=== PATIENT | female | born 2000 | race Caucasian/White ===

== ENCOUNTER 2024-04-17 10:25 | Outpatient (AMB) | payer BC, MEDICAID, SELFPAY ==
--- NOTE | 2024-04-17 10:22 | AMB.OBINITIA ---
Vital Signs 04/17/24 10:36 Height 1.57 m Height Method Stated Weight 69.003 kg Weight Measurement Method Standing Scale BMI 27.8 BP 94/51 L Blood Pressure Source Automatic Cuff Blood Pressure Location Left Upper Arm Position Sitting Respiration 16 Pulse 96 Pulse Source Monitor Temp 97.2 F Temp Source Oral Pulse Oximetry (%) 98 Oxygen Delivery Method Room Air Allergies/Home Meds Allergies & Medications Allergies No Known Allergies Allergy (Verified 04/17/24 10:39) Medication Reconciliation No Known Home Medications 04/17/24 [History Confirmed 04/17/24] Intake Visit Data Collection New Patient or Established: New Patient (never been to [facility]) Reason for Visit:: New OB visit Consent obtained for Telemed Visit: No Seen by Clinical Staff ONLY (RN/MA): No Textile Designs Sales Representative Required: No Do You Feel Safe at Home: Yes Authorities Contacted: N/A PCP or OBGYN visit in last 3 months: Yes Hx Now: Yes Are you currently on any form of Control: No Last menstrual period: 01/16/24 Pain Present Currently: No Pain Scale Used: Paulino-Zamora/Numerical Pain scale:: 0 Smoking Status Smoking Status: Never smoker Questionnaires Covid-19 Vaccine Questionnaire Has patient been vacinated for Covid-19 Have you been vacinated for Covid-19: No PHQ-9 PHQ-2 Over the last 2 weeks, how often have you been bothered by any of the following problems? 1. Little interest or pleasure in doing things: not at all 2. 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 Tobacco History Smoking Status: Never smoker Alcohol History Alcohol Intake: Never Domestic Abuse History Do You Feel Safe at Home: Yes Past Medical History Past Medical History Have you ever been diagnosed with any of the following: Neurological Problems Meningitis: No Seizures: No Migraine: No Cardiology Problems Cardiac Arrhythmia: No Heart Murmur: No Hypercholesterolemia: No Deep Vein Thrombosis: No Hypertension: No Respiratory Problems Asthma: No Pulmonary Embolism: No Sleep Apnea: No Stomache/Intestinal Problems Gall Bladder Disease: No Irritable Bowel: No Gastroesophageal Reflux Disease: No Obesity: No Genital/Urinary Problems Kidney Stones: No Reproductive Problems Breast Cancer: No Endometriosis: No Fibroids: No Genital Herpes: No Gonorrhea: No Pelvic Inflammatory Disease: No Polycystic Ovarian Syndrome: No Previous Pregnancies: Yes (Previous vaginal delivery x 2) Musculoskeletal Problems Arthritis: No Rheumatoid Arthritis: No Head,Eye,Nose,Throat Problems Glaucoma: No Endocrine Problems Diabetes Mellitus Type 2: No Hyperthyroidism: No Hypothyroidism: No Blood Problems Anemia: No Clotting Problems: No Psychologic Problems Depression: No Anxiety: No Attention Deficit Disorder: No Depression: No Other Problems Hospitalization: Yes (For vaginal delivery x 2) Autoimmune Disease: No Blood Transfusions: No Surgical History Appendectomy: No Bariatric Surgery: No OB Initial Visit Menstrual History Menstrual reliability: definite Flow: normal Menstrual regularity: regular Monthly: Yes Age at menarche: 11 On control pills at conception: No Date of positive home test: 02/26/24 OB History : 3 Para: 2 # of Living Children: 2 Delivery History 1st : Child's name: lanette date: 10/23/20 sex: male Gestational age at delivery (weeks): 40 Delivery type: vaginal weight (lbs): 3628.739 g Delivery complications: Shoulder dystocia History of depression before or after : No 2nd : Child's name: Berto date: 11/27/22 sex: female Gestational age at delivery (weeks): 39 Delivery type: vaginal weight (lbs): 3628.739 g History of depression before or after : No Additional comments: Induction of labor at 39 weeks due to history of shoulder dystocia Infection History & Risk Evaluation History of STDs: none HIV risk evaluation: low risk Hepatitis B risk evaluation: low risk Patient or partner has history of Genital Herpes: No Varicella/chicken pox status: immunized Genetic Screening & History Genetic Screening/Teratology Counseling - Includes patient, baby's father, or anyone in either family with: 1. Patient's age 35 years or older as of estimated date of delivery: No 2. Thalassemia (Kuwaiti, Danish, Mediterranean, or Background); MCV less than 80: No 3. Neural Tube Defect (Meningomyelocele, Spina Bifida, or Anencephaly): No 4. Congenital Heart Defect: No 5. Down Syndrome: No 6. Neri-Sachs (Ashkenazi Scientologist, Cajun, Samoan Slovenian): No 7. Adore Disease (Ashkenazi Scientologist): No 8. Familial Dysautonomia (Ashkenazi Scientologist): No 9. Sickle Cell Disease or Trait (): No 10. Hemophilia or other blood disorders: No 11. Muscular Dystrophy: No 12. Cystic Fibrosis: No 13. Key's Chorea: No 14. Mental Retardation/Autism: No 15. Other inherited genetic or chromosomal disorder: No 16. Maternal Metabolic Disorder (EG,TYPE 1 Diabetes, PKU): No 17. Patient or baby's father had a child with defects not listed above: No 18. Recurrent loss or a stillbirth: No 19. Medications (including supplements, vitamins, herbs or otc drugs)/illicit/recreational drugs/alcohol since last menstrual period: No 20. Any other: No Comments/Counseling: Patient had NIPT drawn results are not back yet Infection History 1. Live with someone with TB or exposed to TB: No 2. Rash or viral illness since last menstrual period: No 3. Hepatitis B,C: No Other (see comments) Source: [employer] OB Flowsheet OB Flowsheet Initial Weight: Not Recorded Date <del>?</del> EGA Weight Edema CTX Effacement BP Fundal ht Pres Dilation Effacement Station Visit Note Alb Glu FHR Mov 04/17/24 <del>?</del> 12w 0d 69.003 kg 94/51 140 Exam General Limitations: no limitations General Appearance: alert, in no apparent distress, comfortable, cooperative, healthy appearing and well groomed Neck Neck exam: Present normal inspection, full ROM and trachea midline Chest Chest inspection: Present normal inspection and symmetric chest wall rise Resp Respiratory exam: Present normal lung sounds bilaterally Card Cardiovascular exam: Present regular rate, normal rhythm and normal heart sounds Abdominal Abdominal exam: Present soft and normal bowel sounds External exam: Present normal external exam Bimanual exam: Present normal bimanual exam and uterine enlargement (12-14 week size) Extremities Extremities exam: Present normal inspection and full ROM Psych Psychiatric exam: Present normal affect and normal mood Skin Skin exam: Present warm, dry, intact and normal color Assessment & Plan Diagnosis / Problem List (1) History of shoulder dystocia in prior : Status: Acute (2) : Status: Acute Additional Plan Follow Up: 4 Weeks (Patient to call for her labs and NIPT and release any records to us.) Office Procedures OB Clinic LOC & Office Proc's Nursing/Assessment Patient Status: Initial/New Patient OB Clinic Nursing Assessment: BP Monitoring, Medication Reconciliation, Update PMH in EMR and Vital Signs OB Clinic Coordination of Care: Consent,records obtained, informed consent, Education Simp Pt/Fam, Lab and Imaging orders and Staff clarify orders Special Needs: Heart tones New Patient Charge New Patient Point Assignment: 1119 New Patient Point Charge: MAT REPAIRER Level 4 ([id number]) OB Ultrasound OB Ultrasound Indication(s):: Size and dates, viability Ultrasound technique:: transvaginal Embryo/ Assessment 1: [place]-rump length (cm): 5.25 (Corresponding to 12 weeks 0 days)
[2024-04-17 10:36] VITALS: BP 94/51; PULSE 96; RESP 16; TEMP 36.2; O2SAT 98; BMI 27.8
== END 2024-04-17 11:06 | disposition home or self-care (01) ==
LOC: HODSOBC 10:25
PROVIDERS: Supervising Provider Obstetrics & Gynecology; Visit Provider Obstetrics & Gynecology
DX: Z34.81 Encounter for supervision of other normal pregnancy, first trimester (principal); Z3A.12 12 weeks gestation of pregnancy; Z87.59 Personal history of other complications of pregnancy, childbirth and the puerperium
CPT/HCPCS: 99204; G0463

== ENCOUNTER 2024-06-05 11:03 | Outpatient (AMB) | payer BC, MEDICAID, SELFPAY ==
--- NOTE | 2024-06-05 11:06 | OBCLNT_ITS ---
Vital Signs 06/05/24 11:18 Height 1.57 m Height Method Stated Weight 72.575 kg Weight Measurement Method Standing Scale BMI 29.4 BP 128/75 Blood Pressure Source Automatic Cuff Blood Pressure Location Left Upper Arm Position Sitting Respiration 14 Pulse 80 Pulse Source Monitor Temp 97.7 F Temp Source Oral Pulse Oximetry (%) 98 Oxygen Delivery Method Room Air Allergies/Home Meds Allergies & Medications Allergies No Known Allergies Allergy (Verified 06/05/24 11:18) Medication Reconciliation No Known Home Medications 04/17/24 [History Confirmed 06/05/24] Intake Visit Data Collection New Patient or Established: Established Patient (seen at [facility] within 3 years) Reason for Visit:: CARE Seen by Clinical Staff ONLY (RN/MA): No 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 1. Little interest or pleasure in doing things: not at all 2. Feeling down, depressed, or hopeless: not at all Total score: 0 PHQ-9 3. Trouble falling or staying asleep, or sleeping too much: Not at all 4. Feeling tired or having little energy: Not at all 5. Poor appetite or overeating: Not at all 6. Feeling bad about yourself - or that you are a failure or have let yourself or your family down: Not at all 7. Trouble concentrating on things, such as reading the newspaper or watching television: Not at all 8. Moving or speaking so slowly that other people could have noticed? - Or the opposite - being so fidgety or restless that you have been moving around a lot more than usual: not at all 9. Thoughts that you would be better off or of hurting yourself in some way: Not at all Total score: 0 Source: Developed by Drs. Larry Allen, Valarie Brownlee, Cesar Rose and colleagues, with an educational galo from [employer]. 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 Tobacco History Smoking Status: Never smoker Alcohol History Alcohol Intake: Never Domestic Abuse History Do You Feel Safe at Home: Yes Past Medical History Past Medical History Have you ever been diagnosed with any of the following: Neurological Problems Cerebrovascular Accident (CVA): No Transient Ischemic Attacks (TIA): No Dementia: No Alzheimer's Disease: No Parkinson's Disease: No Brain Tumor: No Meningitis: No Seizures: No Guillain-[place] Syndrome: No Migraine: No Cardiology Problems Myocardial Infarction: No Cardiac Arrhythmia: No Heart Murmur: No Hypercholesterolemia: No Deep Vein Thrombosis: No Hypertension: No Respiratory Problems Chronic Obstructive Pulmonary Disease (COPD): No Asthma: No Pulmonary Embolism: No Sleep Apnea: No Smoking: No Smoking Cessation Counseling: No Smoking Exposure: No Tobacco Use: No Stomache/Intestinal Problems Liver Cancer: No Hepatitis: No Cirrhosis: No Pancreatic Cancer: No Pancreatitis: No Gall Bladder Disease: No Irritable Bowel: No Gastroesophageal Reflux Disease: No Obesity: No Genital/Urinary Problems Chronic Kidney Disease: No Renal Disease: No Kidney Stones: No Polycystic Kidney Disease: No Neurogenic Bladder: No Inguinal Hernia: No Dialysis: No Reproductive Problems Breast Cancer: No Endometriosis: No Fibroids: No Genital Herpes: No Gonorrhea: No Pelvic Inflammatory Disease: No Polycystic Ovarian Syndrome: No Previous Pregnancies: Yes (Previous vaginal delivery x 2) Musculoskeletal Problems Muscular Dystrophy: No Arthritis: No Rheumatoid Arthritis: No Head,Eye,Nose,Throat Problems Glaucoma: No Endocrine Problems Diabetes Mellitus Type 2: No Hyperthyroidism: No Hypothyroidism: No Blood Problems Anemia: No Clotting Problems: No Psychologic Problems Depression: No Anxiety: No Attention Deficit Disorder: No Depression: No Other Problems Hospitalization: Yes (For vaginal delivery x 2) Autoimmune Disease: No Down Syndrome: No Autism: No Developmental Delay: No Cosmetic Surgery: No Shingles: No Falls: No Blood Transfusions: No Surgical History Appendectomy: No Bariatric Surgery: No Visit OB Visit Log OB Flowsheet Initial Weight: 68 kg Date -?-?-?-?-?-?-?-?-?-?-?-?- EGA Weight Edema CTX Effacement BP Fundal ht Pres Dilation Effacement Station Visit Note Alb Glu FHR Mov 04/17/24 -?-?-?-?-?-?-?-?-?-?-?-?- 12w 0d 69.003 kg (+1002.739 g) 94/51 14 0 06/05/24 -?-?-?-?-?-?-?-?-?-?-?-?- 19w 0d 72.575 kg (+4574.779 g) 128/75 22 Went to ER for a shock. all tests WNL. Need SS US. 140 active BEA Calculator Estimated Delivery Date Method Current WG Current Estimate 10/30/24 Ultrasound #1 19w 0d Other Estimates 10/22/24 LMP (Certain) 20w 1d Expected Delivery Route/Plan EDC 10/30/24 Specific Issue/Plans HX SHOULDER DYSTOCIA WITH FIRST BABY. FOR IOL 38-39 WEEKS. NOT 10/23 IT IS HER OTHER CHILD'S B DAY Notes Visit Date: 06/05/24 Last Updated by: Malinda Enrique (OB Clinic)MD Need all PNC labs from [facility] in [place] Office Procedures OB Clinic LOC & Office Proc's Nursing/Assessment Patient Status: Established Patient OB Clinic Nursing Assessment: Medication Reconciliation, Update PMH in EMR and Vital Signs OB Clinic Coordination of Care: Complex Care and Chronic Disease 1-5, Consent,records obtained, informed consent, Education Simp Pt/Fam and Staff clarify orders Special Needs: Heart tones Miscellaneous Interventions: Blood/Urine Collection Established Patient Charge Established Patient Point Assignment: 145 Established Patient Point Charge: EP Level 4 (120-155)
[2024-06-05 11:18] VITALS: BP 128/75; PULSE 80; RESP 14; TEMP 36.5; O2SAT 98; BMI 29.4
== END 2024-06-05 11:28 | disposition home or self-care (01) ==
LOC: HODSOBC 11:03
PROVIDERS: Supervising Provider Obstetrics & Gynecology; Visit Provider Obstetrics & Gynecology
DX: O09.292 Supervision of pregnancy with other poor reproductive or obstetric history, second trimester (principal); Z3A.19 19 weeks gestation of pregnancy; Z87.59 Personal history of other complications of pregnancy, childbirth and the puerperium
CPT/HCPCS: 99214; G0463

== ENCOUNTER 2024-07-03 13:55 | Outpatient (AMB) | payer BC, MEDICAID, SELFPAY ==
[2024-07-03 14:08] VITALS: BP 124/74; PULSE 93; RESP 18; TEMP 36.2; O2SAT 97; BMI 30.3
--- NOTE | 2024-07-03 14:08 | OBCLNT_ITS ---
Vital Signs 07/03/24 14:08 Height 1.57 m Height Method Stated Weight 74.843 kg Weight Measurement Method Standing Scale BMI 30.3 BP 124/74 Blood Pressure Source Automatic Cuff Blood Pressure Location Left Upper Arm Position Sitting Respiration 18 Pulse 93 Pulse Source Monitor Temp 97.2 F Temp Source Oral Pulse Oximetry (%) 97 Oxygen Delivery Method Room Air Allergies/Home Meds Allergies & Medications Allergies No Known Allergies Allergy (Verified 07/03/24 14:09) Medication Reconciliation No Known Home Medications 04/17/24 [History Confirmed 07/03/24] Intake Visit Data Collection New Patient or Established: Established Patient (seen at [facility] within 3 years) Reason for Visit:: OBC Seen by Clinical Staff ONLY (RN/MA): No 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 1. Little interest or pleasure in doing things: not at all 2. Feeling down, depressed, or hopeless: not at all Total score: 0 PHQ-9 3. Trouble falling or staying asleep, or sleeping too much: Not at all 4. Feeling tired or having little energy: Not at all 5. Poor appetite or overeating: Not at all 6. Feeling bad about yourself - or that you are a failure or have let yourself or your family down: Not at all 7. Trouble concentrating on things, such as reading the newspaper or watching television: Not at all 8. Moving or speaking so slowly that other people could have noticed? - Or the opposite - being so fidgety or restless that you have been moving around a lot more than usual: not at all 9. Thoughts that you would be better off or of hurting yourself in some way: Not at all Total score: 0 If you checked off any problems, how difficult have these problems made it for you to do your work, take care of things at home, or get along with other people?: not difficult at all Source: Developed by Drs. Larry Allen, Valarie Brownlee, Cesar Rose and colleagues, with an educational galo from [employer]. 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: Past Medical History Past Medical History: No Hx Hypothyroidism, No Hx Hyperthyroidism, No Hx Breast Cancer, No Hx Hypertension, No Hx Anemia, No Hx Renal Disease, No Hx Deep Vein Thrombosis, No Hx Diabetes Mellitus Type 2 and No Hx Polycystic Ovarian Syndrome Care OB Visit Log OB Flowsheet Initial Weight: 68 kg Date -?-?-?-?-?-?-?-?-?-?-?-?- EGA Weight Edema CTX Effacement BP Fundal ht Pres Dilation Effacement Station Visit Note Alb Glu FHR Mov 04/17/24 -?-?-?-?-?-?-?-?-?-?-?-?- 12w 0d 69.003 kg (+1002.739 g) 94/51 14 0 06/05/24 -?-?-?-?-?-?-?-?-?-?-?-?- 19w 0d 72.575 kg (+4574.779 g) 128/75 22 Went to ER for a shock. all tests WNL. Need SS US. 140 active 07/03/24 -?-?-?-?-?-?-?-?-?-?-?-?- 23w 0d 74.843 kg (+6842.741 g) 124/74 24 No bleed ing contractions or loss of fluid. Patient is tired but she has 2 little ones at home 148 active BEA Calculator Estimated Delivery Date Method Current WG Current Estimate 10/30/24 Ultrasound #1 23w 0d Other Estimates 10/22/24 LMP (Certain) 24w 1d Comments: labs on chart from 04/10/2024 [facility] delta: A +/antibody screen negative/rubella nonimmune/ RPR nonreactive /HIV negative/ hepatitis B surface antigen negative/ hepatitis C negative /TB test negative and GC negative/ Chlamydia negative/ Trichomonas negative /urine culture negative /hemoglobin 12.6. Ultrasound from 04/09/2024 reviewed intrauterine measuring 11- 2/7 weeks with cardiac activity and an EDC of 10/28/2024. CF negative Expected Delivery Route/Plan EDC 10/30/24 Specific Issue/Plans HX SHOULDER DYSTOCIA WITH FIRST BABY. FOR IOL 38-39 WEEKS. NOT 10/23 IT IS HER OTHER CHILD'S B DAY Notes Visit Date: 07/03/24 Last Updated by: Malinda Enrique (OB Clinic)MD Patient states she had NIPT. I do not have any report. We did get a hold of her ultrasound from [facility] 06/23/2024 revealing a normal structural survey breech presentation EDC 11/03/2024 Visit Date: 06/05/24 Last Updated by: Malinda Enrique (OB Clinic)MD Need all PNC labs from [facility] in [place] Office Procedures OB Clinic LOC & Office Proc's Nursing/Assessment Patient Status: Established Patient OB Clinic Nursing Assessment: Medication Reconciliation, Update PMH in EMR and Vital Signs OB Clinic Coordination of Care: Consent,records obtained, informed consent, Education Simp Pt/Fam and Staff clarify orders Special Needs: Heart tones Established Patient Charge Established Patient Point Assignment: 90 Established Patient Point Charge: EP Level 3 (80-115) Assessment & Plan Diagnosis / Problem List (1) : Status: Acute Qualifiers: Weeks of gestation: 23 weeks Qualified Code(s): Z3A.23 - 23 weeks gestation of (2) History of shoulder dystocia in prior : Status: Acute Assessment and Plan: For induction of labor between 38 and 39 weeks. Ultrasound at 36 weeks for EFW
== END 2024-07-03 14:48 | disposition home or self-care (01) ==
LOC: HODSOBC 13:55
PROVIDERS: Supervising Provider Obstetrics & Gynecology; Visit Provider Obstetrics & Gynecology
DX: O09.292 Supervision of pregnancy with other poor reproductive or obstetric history, second trimester (principal); Z3A.23 23 weeks gestation of pregnancy; Z87.59 Personal history of other complications of pregnancy, childbirth and the puerperium
CPT/HCPCS: 99213; G0463

== ENCOUNTER 2024-08-03 10:37 | Outpatient (AMB) | payer BC, SELFPAY ==
[2024-08-03 11:14] VITALS: BP 121/75; PULSE 86; RESP 18; TEMP 36.2; O2SAT 98; BMI 31.6
--- NOTE | 2024-08-03 11:14 | AMB.OBVISIT ---
Vital Signs 08/03/24 11:14 Height 1.57 m Height Method Stated Weight 78.131 kg Weight Measurement Method Standing Scale BMI 31.6 BP 121/75 Blood Pressure Source Automatic Cuff Blood Pressure Location Left Upper Arm Position Sitting Respiration 18 Pulse 86 Pulse Source Monitor Temp 97.2 F Temp Source Oral Pulse Oximetry (%) 98 Oxygen Delivery Method Room Air Allergies/Home Meds Allergies & Medications Allergies No Known Allergies Allergy (Verified 08/03/24 11:15) Medication Reconciliation No Known Home Medications 04/17/24 [History Confirmed 08/03/24] Intake Visit Data Collection New Patient or Established: Established Patient (seen at [facility] within 3 years) Reason for Visit:: OBC Seen by Clinical Staff ONLY (RN/MA): No Bottomer Operator Required: No Do You Feel Safe at Home: Yes Authorities Contacted: N/A PCP or OBGYN visit in last 3 months: Yes Date of Last PCP or OBGYN visit: 07/03/24 Hx Now: Yes Pain Present Currently: No Pain Scale Used: Paulino-Zamora/Numerical Pain scale:: 0 Smoking Status Smoking Status: Never smoker Questionnaires Covid-19 Vaccine Questionnaire Has patient been vacinated for Covid-19 Have you been vacinated for Covid-19: Yes PHQ-9 PHQ-2 Over the last 2 weeks, how often have you been bothered by any of the following problems? 1. Little interest or pleasure in doing things: not at all 2. Feeling down, depressed, or hopeless: not at all Total score: 0 PHQ-9 3. Trouble falling or staying asleep, or sleeping too much: Not at all 4. Feeling tired or having little energy: Not at all 5. Poor appetite or overeating: Not at all 6. Feeling bad about yourself - or that you are a failure or have let yourself or your family down: Not at all 7. Trouble concentrating on things, such as reading the newspaper or watching television: Not at all 8. Moving or speaking so slowly that other people could have noticed? - Or the opposite - being so fidgety or restless that you have been moving around a lot more than usual: not at all 9. Thoughts that you would be better off or of hurting yourself in some way: Not at all Total score: 0 If you checked off any problems, how difficult have these problems made it for you to do your work, take care of things at home, or get along with other people?: not difficult at all Source: Developed by Drs. Larry Allen, Valarie Brownele, Cesar Rose and colleagues, with an educational galo from [employer]. 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 Care OB Visit Log OB Flowsheet Initial Weight: 68 kg Date <del>?</del> EGA Weight BP Alb Glu CTX Pres Fundal ht FHR Mov Dilation Station Effacement Hx Notes Visit Note 04/17/24 <del>?</del> 12w 0d 69.003 kg (+1002.739 g) 94/51 140 06/05/24 <del>?</del> 19w 0d 72.575 kg (+4574.779 g) 128/75 22 140 active Went to ER for a shock. all tests WNL. Need SS US. 07/03/24 <del>?</del> 23w 0d 74.843 kg (+6842.741 g) 124/74 24 148 active No bleeding contractions or loss of fluid. Patient is tired but she has 2 little ones at home 08/03/24 <del>?</del> 27w 3d 78.131 kg (+10.131 kg) 121/75 30 154 active +FM, No LOF or VB BEA Calculator Estimated Delivery Date Method Current WG Current Estimate 10/30/24 Ultrasound #1 27w 3d Other Estimates 10/22/24 LMP (Certain) 28w 4d Comments: labs on the chart: A+/ antibody negative/ rubella nonimmune/ RPR nonreactive /hepatitis B surface antigen negative/ hepatitis C negative/ GC negative /Chlamydia negative/ trichomonas negative /RPR negative/ HIV negative /NIPT 46XX Structural survey at 21 weeks on 06/23/2024 normal. Expected Delivery Route/Plan EDC 10/28/24 IOL 38-39 weeks h/o Shoulder dyystocia with first baby. Not second baby Specific Issue/Plans HX SHOULDER DYSTOCIA WITH FIRST BABY. FOR IOL 38-39 WEEKS. NOT 10/23 IT IS HER OTHER CHILD'S B DAY Notes Visit Date: 08/03/24 Last Updated by: Malinda Enrique (OB Clinic)MD All labs up-to-date and on the chart. Structural survey on the chart. NIPT on the chart. Induction of labor at 38 to 39 weeks for history of shoulder dystocia. Schedule ultrasound at 35 to 36 weeks for size. Glucose challenge test ordered. Visit Date: 07/03/24 Last Updated by: Malinda Enrique (OB Clinic)MD Patient states she had NIPT. I do not have any report. We did get a hold of her ultrasound from [facility] 06/23/2024 revealing a normal structural survey breech presentation EDC 11/03/2024 Visit Date: 06/05/24 Last Updated by: Malinda Enrique (OB Clinic)MD Need all PNC labs from [facility] in [place] Office Procedures OB Clinic LOC & Office Proc's Nursing/Assessment Patient Status: Established Patient OB Clinic Nursing Assessment: Update PMH in EMR and Vital Signs OB Clinic Coordination of Care: Education Complex Pt/Fam and 4+ Authorizations needed Special Needs: Heart tones Established Patient Charge Established Patient Point Assignment: 100 Established Patient Point Charge: EP Level 3 (80-115)
== END 2024-08-03 12:10 | disposition home or self-care (01) ==
LOC: HODSOBC 10:37
PROVIDERS: PCP Obstetrics & Gynecology; Referring Provider Obstetrics & Gynecology; Supervising Provider Obstetrics & Gynecology; Visit Provider Obstetrics & Gynecology
DX: O09.292 Supervision of pregnancy with other poor reproductive or obstetric history, second trimester (principal); Z3A.27 27 weeks gestation of pregnancy; Z87.59 Personal history of other complications of pregnancy, childbirth and the puerperium
CPT/HCPCS: 99213; G0463

== ENCOUNTER 2024-09-25 13:19 | Outpatient (AMB) | payer MEDICAID, SELFPAY ==
[2024-09-25 13:26] VITALS: BP 125/83; PULSE 98; RESP 17; TEMP 36.4; BMI 32.9
--- NOTE | 2024-09-25 13:26 | AMB.OBVISIT ---
Vital Signs 09/25/24 13:26 Height 1.57 m Height Method Measured Weight 81.193 kg Weight Measurement Method Standing Scale BMI 32.9 BP 125/83 Blood Pressure Source Automatic Cuff Blood Pressure Location Right Upper Arm Position Sitting Respiration 17 Pulse 98 Pulse Source Monitor Temp 97.5 F Temp Source Temporal Artery Scan Allergies/Home Meds Allergies & Medications Allergies No Known Allergies Allergy (Verified 09/25/24 13:27) Medication Reconciliation No Known Home Medications 04/17/24 [History Confirmed 09/25/24] Intake Visit Data Collection New Patient or Established: Established Patient (seen at [facility] within 3 years) Reason for Visit:: OBC\ LAB RESULTS Consent obtained for Telemed Visit: No Seen by Clinical Staff ONLY (RN/MA): No 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 1. Little interest or pleasure in doing things: not at all PHQ-9 3. Trouble falling or staying asleep, or sleeping too much: Not at all 4. Feeling tired or having little energy: Not at all 5. Poor appetite or overeating: Not at all 6. Feeling bad about yourself - or that you are a failure or have let yourself or your family down: Not at all 7. Trouble concentrating on things, such as reading the newspaper or watching television: Not at all 8. Moving or speaking so slowly that other people could have noticed? - Or the opposite - being so fidgety or restless that you have been moving around a lot more than usual: not at all 9. Thoughts that you would be better off or of hurting yourself in some way: Not at all If you checked off any problems, how difficult have these problems made it for you to do your work, take care of things at home, or get along with other people?: not difficult at all Source: Developed by Drs. Larry Allen, Valarie Brownlee, Cesar Rose and colleagues, with an educational galo from [employer]. 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 History of Present Illness HPI Narrative The patient is a 24-year-old -0-0-2 presents for care Care OB Visit Log OB Flowsheet Initial Weight: 68 kg Date <del>?</del> EGA Weight BP Alb Glu CTX Pres Fundal ht FHR Mov Dilation Station Effacement Hx Notes Visit Note 04/17/24 <del>?</del> 12w 0d 69.003 kg (+1002.739 g) 94/51 140 06/05/24 <del>?</del> 19w 0d 72.575 kg (+4574.779 g) 128/75 22 140 active Went to ER for a shock. all tests WNL. Need SS US. 07/03/24 <del>?</del> 23w 0d 74.843 kg (+6842.741 g) 124/74 24 148 active No bleeding contractions or loss of fluid. Patient is tired but she has 2 little ones at home 08/03/24 <del>?</del> 27w 3d 78.131 kg (+10.131 kg) 121/75 30 154 active +FM, No LOF or VB 09/25/24 <del>?</del> 35w 0d 81.193 kg (+13.193 kg) 125/83 35 147 active Good movement no contractions or vaginal bleeding Patient had elevated glucose challenge test and I discussed her 3-hour results today. I just got a hold of this report today it was done a month ago August 25 [facility]. Patient states she was having trouble getting the results sent to me. It is 87\203\139\144. Patient technically failed her 1 hour and her 3-hour. As she is already 35 weeks she will start following a gestational diabetic diet at this point. Patient had elevated glucose challenge test and I discussed her 3-hour results today. I just got a hold of this report today it was done a month ago August 25 at [facility] Patient states she was having trouble getting the results sent to me. It is 87\203\139\144. Patient technically failed her 1 hour and her 3-hour. As she is already 35 weeks she will start following a gestational diabetic diet at this point. BEA Calculator Estimated Delivery Date Method Current WG Current Estimate 10/30/24 Ultrasound #1 35w 0d Other Estimates 10/22/24 LMP (Certain) 36w 1d Expected Delivery Route/Plan EDC 10/28/24 IOL 38-39 weeks h/o Shoulder dyystocia with first baby. Not second baby labs from [facility]: No blood type available/ rubella immune/ RPR nonreactive/ hepatitis B surface antigen negative /HIV negative/ hepatitis C negative/ GC negative/ Chlamydia negative/urine culture negative /hemoglobin 13/ NIPT 46XX TB test negative /cystic fibrosis test negative Ultrasound at [facility] on chart 04/09/24 :11 weeks 2 days IUP corresponding to EDC 10/28/2024. 1 hour glucose elevated 160/3-hour glucose done late revealing elevated 1 hour at 203 and elevated 3-hour at 144. Plan for gestational diabetic diet. Specific Issue/Plans HX SHOULDER DYSTOCIA WITH FIRST BABY. FOR IOL 38-39 WEEKS. NOT 10/23 IT IS HER OTHER CHILD'S B DAY Notes Visit Date: 09/25/24 Last Updated by: Malinda Enrique (OB Clinic)MD Authorized for ultrasound now for size greater than dates. History of shoulder dystocia and her first delivery but not her second delivery. Induce at 38 weeks. Visit Date: 08/03/24 Last Updated by: Malinda Enrique (OB Clinic)MD All labs up-to-date and on the chart. Structural survey on the chart. NIPT on the chart. Induction of labor at 38 to 39 weeks for history of shoulder dystocia. Schedule ultrasound at 35 to 36 weeks for size. Glucose challenge test ordered. Visit Date: 07/03/24 Last Updated by: Malinda Enrique (OB Clinic)MD Patient states she had NIPT. I do not have any report. We did get a hold of her ultrasound from [facility] 06/23/2024 revealing a normal structural survey breech presentation EDC 11/03/2024 Visit Date: 06/05/24 Last Updated by: Malinda Enrique (OB Clinic)MD Need all PNC labs from [facility] in [place] Office Procedures OB Clinic LOC & Office Proc's Nursing/Assessment Patient Status: Established Patient OB Clinic Nursing Assessment: Medication Reconciliation, Update PMH in EMR and Vital Signs OB Clinic Coordination of Care: Complex Care and Chronic Disease 1-5, Consent,records obtained, informed consent, Education Simp Pt/Fam, 4+ Authorizations needed and Results/Orders obtained Special Needs: Heart tones Established Patient Charge Established Patient Point Assignment: 135 Established Patient Point Charge: EP Level 4 (120-155) Assessment & Plan Diagnosis / Problem List (1) History of shoulder dystocia in prior : Status: Acute Plan: Induction of labor 2 weeks early (2) : Status: Acute Qualifiers: Weeks of gestation: 36 weeks Qualified Code(s): Z3A.36 - 36 weeks gestation of Plan: For size ultrasound today,size greater than dates
== END 2024-09-25 14:00 | disposition home or self-care (01) ==
LOC: HODSOBC 13:19
PROVIDERS: Supervising Provider Obstetrics & Gynecology; Visit Provider Obstetrics & Gynecology
DX: O09.293 Supervision of pregnancy with other poor reproductive or obstetric history, third trimester (principal); Z3A.35 35 weeks gestation of pregnancy; Z87.59 Personal history of other complications of pregnancy, childbirth and the puerperium
CPT/HCPCS: 99214; G0463

== ENCOUNTER → 2024-10-02 | Outpatient (CLI) | payer MEDICAID, SELFPAY ==
--- NOTE | 2024-10-02 | XR_ITS ---
Examination: Complete OB ultrasound greater than 14 weeks Date and time of exam: October 02, 2024 0736 hours INDICATIONS: History shoulder dystocia in prior Findings: Viable intrauterine single fetus with single amniotic sac presentation cephalic Cardiac motion 132 BPM Placenta fundal maternal right grade 2 Umbilical cord insertion 3 vessel seen Amniotic fluid index 9.6 cm spine maternal left Ovaries obscured by bowel gas. Composite estimated gestational age based on BPD, head circumference, abdominal circumference, femur length is 35 weeks 2 days Estimated weight 2597.4 g. Survey of intracranial anatomy, spinal anatomy, abdominal anatomy, four-chamber heart performed with no abnormalities identified. Impression: Viable intrauterine gestation cephalic presentation Estimated gestational age 35 weeks 2 days Estimated weight 2597.4 g.
== END | disposition home or self-care (01) ==
PROVIDERS: Referring Provider Obstetrics & Gynecology; Visit Provider Obstetrics & Gynecology
DX: Z87.59 Personal history of other complications of pregnancy, childbirth and the puerperium (principal); Z3A.36 36 weeks gestation of pregnancy
CPT/HCPCS: 76805

== ENCOUNTER 2024-10-05 12:58 | Outpatient (AMB) | payer MEDICAID, SELFPAY ==
[2024-10-05 13:16] VITALS: BP 121/80; PULSE 92; RESP 18; TEMP 36.7; O2SAT 98; BMI 32.5
--- NOTE | 2024-10-05 13:16 | OBCLNT_ITS ---
Vital Signs 10/05/24 13:16 Height 1.57 m Height Method Stated Weight 80.399 kg Weight Measurement Method Standing Scale BMI 32.5 BP 121/80 Blood Pressure Source Automatic Cuff Blood Pressure Location Left Upper Arm Position Sitting Respiration 18 Pulse 92 Pulse Source Monitor Temp 98.1 F Temp Source Oral Pulse Oximetry (%) 98 Oxygen Delivery Method Room Air Allergies/Home Meds Allergies & Medications Allergies No Known Allergies Allergy (Verified 10/05/24 13:22) Medication Reconciliation No Known Home Medications 04/17/24 [History Confirmed 10/05/24] Intake Visit Data Collection New Patient or Established: Established Patient (seen at [facility] within 3 years) Reason for Visit:: CARE Seen by Clinical Staff ONLY (RN/MA): No 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 1. Little interest or pleasure in doing things: not at all 2. Feeling down, depressed, or hopeless: not at all Total score: 0 PHQ-9 3. Trouble falling or staying asleep, or sleeping too much: Not at all 4. Feeling tired or having little energy: Not at all 5. Poor appetite or overeating: Not at all 6. Feeling bad about yourself - or that you are a failure or have let yourself or your family down: Not at all 7. Trouble concentrating on things, such as reading the newspaper or watching television: Not at all 8. Moving or speaking so slowly that other people could have noticed? - Or the opposite - being so fidgety or restless that you have been moving around a lot more than usual: not at all 9. Thoughts that you would be better off or of hurting yourself in some way: Not at all Total score: 0 Source: Developed by Valarie GambinoW. Kem, Cesar Rose and colleagues, with an educational galo from [employer]. 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 History Past Medical History: No Hx Hypothyroidism, No Hx Hyperthyroidism, No Hx Breast Cancer, No Hx Hypertension, No Hx Anemia, No Hx Renal Disease, No Hx Deep Vein Thrombosis, No Hx Diabetes Mellitus Type 2 and No Hx Polycystic Ovarian Syndrome Care OB Visit Log OB Flowsheet Initial Weight: 68 kg Date -?-?-?-?-?-?-?-?-?-?-?-?- EGA Weight BP Alb Glu CTX Pres Fundal ht FHR Mov Dilation Station Effacement Hx Notes Visit Note 04/17/24 -?-?-?-?-?-?-?-?-?-?-?-?- 12w 0d 69.003 kg (+1002.739 g) 94/51 140 06/05/24 -?-?-?-?-?-?-?-?-?-?-?-?- 19w 0d 72.575 kg (+4574.779 g) 128/75 22 140 active Went to ER for a shock. all tests WNL. Need SS US. 07/03/24 -?-?-?-?-?-?-?-?-?-?-?-?- 23w 0d 74.843 kg (+6842.741 g) 124/74 24 148 active No bleeding contractions or loss of fluid. Patient is tired but she has 2 little ones at home 08/03/24 -?-?-?-?-?-?-?-?-?-?-?-?- 27w 3d 78.131 kg (+10.131 kg) 121/75 30 154 active +FM, No LOF or VB 09/25/24 -?-?-?-?-?-?-?-?-?-?-?-?- 35w 0d 81.193 kg (+13.193 kg) 125/83 35 147 active Good movement no contractions or vaginal bleeding Patient had kriss vated glucose challenge test and I discussed her 3-hour results today. I just got a hold of this report today it was done a month ago August 25 [facility]. Patient states she was having trouble getting the results sent to me. It is 87\203\139\144. Patient technically failed her 1 hour and her 3-hour. As she is already 35 weeks she will start following a gestational diabetic diet at this point. Patient had elevated glucose challenge test and I discussed her 3-hour results today. I just got a hold of this report today it was done a month ago August 25 at [facility] Patient states she was having trouble getting the results sent to me. It is 87\203\139\144. Patient technically failed her 1 hour and her 3-hour. As she is already 35 weeks she will start following a gestational diabetic diet at this point. 10/05/24 -?-?-?--?-?-?-?-?-?-?-?-?- 36w 3d 80.399 kg (+12.399 kg) 121/80 occasional cephalic 36 134 active Good movement no contractions no loss of fluid Has growth ultrasound this Saturday BEA Calculator Estimated Delivery Date Method Current WG Current Estimate 10/30/24 Ultrasound #1 36w 3d Other Estimates 10/22/24 LMP (Certain) 37w 4d Expected Delivery Route/Plan LMP 01/16/24 edc by lmp 10/24/24 EDC 10/28/24 by 11 2/7 week us IOL 38-39 weeks h/o Shoulder dyystocia with first baby. Not second baby labs from [facility]: No blood type available/ rubella immune/ RPR nonreactive/ hepatitis B surface antigen negative /HIV negative/ hepatitis C negative/ GC negative/ Chlamydia negative/urine culture negative /hemoglobin 13/ NIPT 46XX TB test negative /cystic fibrosis test negative Ultrasound at [facility] on chart 04/09/24 :11 weeks 2 days IUP corresponding to EDC 10/28/2024. 1 hour glucose elevated 160/3-hour glucose done late revealing elevated 1 hour at 203 and elevated 3-hour at 144. Plan for gestational diabetic diet. Specific Issue/Plans HX SHOULDER DYSTOCIA WITH FIRST BABY. FOR IOL 38-39 WEEKS. NOT 10/23 IT IS HER OTHER CHILD'S B DAY Notes Visit Date: 09/25/24 Last Updated by: Malinda Enrique (OB Clinic)MD Authorized for ultrasound now for size greater than dates. History of shoulder dystocia and her first delivery but not her second delivery. Induce at 38 weeks. Visit Date: 08/03/24 Last Updated by: Malinda Enrique (OB Clinic)MD All labs up-to-date and on the chart. Structural survey on the chart. NIPT on the chart. Induction of labor at 38 to 39 weeks for history of shoulder dystocia. Schedule ultrasound at 35 to 36 weeks for size. Glucose challenge test ordered. Visit Date: 07/03/24 Last Updated by: Malinda Enrique (OB Clinic)MD Patient states she had NIPT. I do not have any report. We did get a hold of her ultrasound from [facility] 06/23/2024 revealing a normal structural survey breech presentation EDC 11/03/2024 Visit Date: 06/05/24 Last Updated by: Malinda Enrique (OB Clinic)MD Need all PNC labs from [facility] [place] Office Procedures OB Clinic LOC & Office Proc's Nursing/Assessment Patient Status: Established Patient OB Clinic Nursing Assessment: Medication Reconciliation, Update PMH in EMR and Vital Signs OB Clinic Coordination of Care: Complex Care and Chronic Disease 1-5, Consent,records obtained, informed consent, Education Simp Pt/Fam, 1 Ins Authorization, Lab and Imaging orders, Results/Orders obtained and Staff clarify orders Special Needs: Heart tones Miscellaneous Interventions: Culture Specimen Collection Established Patient Charge Established Patient Point Assignment: 165 Established Patient Point Charge: EP Level 5 (160-above) Assessment & Plan Diagnosis / Problem List (1) : Status: Acute Qualifiers: Weeks of gestation: 36 weeks Qualified Code(s): Z3A.36 - 36 weeks gestation of (2) History of shoulder dystocia in prior : Status: Acute Plan: Induce at 38 to 39-week Additional Plan Follow Up: 1 Week
== END 2024-10-05 13:45 | disposition home or self-care (01) ==
LOC: HODSOBC 12:58
PROVIDERS: Supervising Provider Obstetrics & Gynecology; Visit Provider Obstetrics & Gynecology
DX: O09.293 Supervision of pregnancy with other poor reproductive or obstetric history, third trimester (principal); Z3A.36 36 weeks gestation of pregnancy; Z87.59 Personal history of other complications of pregnancy, childbirth and the puerperium
CPT/HCPCS: 99215; G0463

== ENCOUNTER 2024-10-14 10:49 | Outpatient (AMB) | payer MEDICAID, SELFPAY ==
[2024-10-14 11:36] VITALS: BP 135/76; PULSE 102; RESP 20; TEMP 36.6; O2SAT 99; BMI 32.8
--- NOTE | 2024-10-14 11:36 | OBCLNT_ITS ---
Vital Signs 10/14/24 11:36 Height 1.57 m Height Method Stated Weight 80.966 kg Weight Measurement Method Standing Scale BMI 32.8 BP 135/76 H Blood Pressure Source Automatic Cuff Blood Pressure Location Left Upper Arm Position Sitting Respiration 20 Pulse 102 H Pulse Source Monitor Temp 97.9 F Temp Source Oral Pulse Oximetry (%) 99 Oxygen Delivery Method Room Air Allergies/Home Meds Allergies & Medications Allergies No Known Allergies Allergy (Verified 10/14/24 11:37) Medication Reconciliation No Known Home Medications 04/17/24 [History Confirmed 10/14/24] Intake Visit Data Collection New Patient or Established: Established Patient (seen at [facility] within 3 years) Reason for Visit:: CARE Seen by Clinical Staff ONLY (RN/MA): No 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 1. Little interest or pleasure in doing things: not at all 2. Feeling down, depressed, or hopeless: not at all Total score: 0 PHQ-9 3. Trouble falling or staying asleep, or sleeping too much: Not at all 4. Feeling tired or having little energy: Not at all 5. Poor appetite or overeating: Not at all 6. Feeling bad about yourself - or that you are a failure or have let yourself or your family down: Not at all 7. Trouble concentrating on things, such as reading the newspaper or watching television: Not at all 8. Moving or speaking so slowly that other people could have noticed? - Or the opposite - being so fidgety or restless that you have been moving around a lot more than usual: not at all 9. Thoughts that you would be better off or of hurting yourself in some way: Not at all Total score: 0 Source: Developed by Blair Gambinoet B.W. Kem, Cesar Rose and colleagues, with an educational galo from [employer]. 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: Past Medical History Past Medical History: No Hx Hypothyroidism, No Hx Hyperthyroidism, No Hx Breast Cancer, No Hx Hypertension, No Hx Anemia, No Hx Renal Disease, No Hx Deep Vein Thrombosis, No Hx Diabetes Mellitus Type 2 and No Hx Polycystic Ovarian Syndrome Care OB Visit Log OB Flowsheet Initial Weight: 68 kg Date -?-?-?-?-?-?-?-?-?-?-?-?- EGA Weight BP Alb Glu CTX Pres Fundal ht FHR Mov Dilation Station Effacement Hx Notes Visit Note 04/17/24 -?-?-?-?-?-?-?-?-?-?-?-?- 12w 0d 69.003 kg (+1002.739 g) 94/51 140 06/05/24 -?-?-?-?-?-?-?-?-?-?-?-?- 19w 0d 72.575 kg (+4574.779 g) 128/75 22 140 active Went to ER for a shock. all tests WNL. Need SS US. 07/03/24 -?-?-?-?-?-?-?-?-?-?-?-?- 23w 0d 74.843 kg (+6842.741 g) 124/74 24 148 active No bleeding contractions or loss of fluid. Patient is tired but she has 2 little ones at home 08/03/24 -?-?-?-?-?-?-?-?-?-?-?-?- 27w 3d 78.131 kg (+10.131 kg) 121/75 30 154 active +FM, No LOF or VB 09/25/24 -?-?-?-?-?-?-?-?-?-?-?-?- 35w 0d 81.193 kg (+13.193 kg) 125/83 35 147 active Good movement no contractions or vaginal bleeding Patient had kriss vated glucose challenge test and I discussed her 3-hour results today. I just got a hold of this report today it was done a month ago August 25 [facility]. Patient states she was having trouble getting the results sent to me. It is 87\203\139\144. Patient technically failed her 1 hour and her 3-hour. As she is already 35 weeks she will start following a gestational diabetic diet at this point. Patient had elevated glucose challenge test and I discussed her 3-hour results today. I just got a hold of this report today it was done a month ago August 25 at [facility] Patient states she was having trouble getting the results sent to me. It is 87\203\139\144. Patient technically failed her 1 hour and her 3-hour. As she is already 35 weeks she will start following a gestational diabetic diet at this point. 10/05/24 -?-?-?-?-?-?-?-?-?-?-?-?- 36w 3d 80.399 kg (+12.399 kg) 121/80 occasional cephalic 36 134 active Good movement no contractions no loss of fluid Has growth ultrasound this Saturday10/14/24 -?-?-?-?-?-?-?-?-?-?-?-?- 37w 5d 80.966 kg (+12.966 kg) 135/76 occasional cephalic 37 127 active +FM No UCs No VB No LOF IOL in 1 week BEA Calculator Estimated Delivery Date Method Current WG Current Estimate 10/30/24 Ultrasound #1 37w 5d Other Estimates 10/22/24 LMP (Certain) 38w 6d Expected Delivery Route/Plan LMP 01/16/24 edc by lmp 10/24/24 EDC 10/28/24 by 11 2/7 week us IOL 38-39 weeks h/o Shoulder dyystocia with first baby. Not second baby labs from [facility]: No blood type available/ rubella immune/ RPR nonreactive/ hepatitis B surface antigen negative /HIV negative/ hepatitis C negative/ GC negative/ Chlamydia negative/urine culture negative /hemoglobin 13/ NIPT 46XX TB test negative /cystic fibrosis test negative Ultrasound at [facility] on chart 2/20/25 :11 weeks 2 days IUP corresponding to EDC 10/28/2024. 1 hour glucose elevated 160/3-hour glucose done late revealing elevated 1 hour at 203 and elevated 3-hour at 144. Plan for gestational diabetic diet. Specific Issue/Plans HX SHOULDER DYSTOCIA WITH FIRST BABY. FOR IOL 38-39 WEEKS. NOT 10/23 IT IS HER OTHER CHILD'S B DAY Notes Visit Date: 10/14/24 Last Updated by: Malinda Enrique (OB Clinic)MD 10/02/24 2597 gm ( 5 lbs 10 oz. Around 6 lbs 10 oz today. GBBS negative Visit Date: 09/25/24 Last Updated by: Malinda Enrique (OB Clinic)MD Authorized for ultrasound now for size greater than dates. History of shoulder dystocia and her first delivery but not her second delivery. Induce at 38 weeks. Visit Date: 08/03/24 Last Updated by: Malinda Enrique (OB Clinic)MD All labs up-to-date and on the chart. Structural survey on the chart. NIPT on the chart. Induction of labor at 38 to 39 weeks for history of shoulder dystocia. Schedule ultrasound at 35 to 36 weeks for size. Glucose challenge test ordered. Visit Date: 07/03/24 Last Updated by: Malinda Enrique (OB Clinic)MD Patient states she had NIPT. I do not have any report. We did get a hold of her ultrasound from [facility] 06/23/2024 revealing a normal structural survey breech presentation EDC 11/03/2024 Visit Date: 06/05/24 Last Updated by: Malinda Enrique (OB Clinic)MD Need all PNC labs from [facility] in [place] Office Procedures OB Clinic LOC & Office Proc's Nursing/Assessment Patient Status: Established Patient OB Clinic Nursing Assessment: Medication Reconciliation, Update PMH in EMR and Vital Signs OB Clinic Coordination of Care: Complex Care and Chronic Disease 1-5, Consent,records obtained, informed consent, Education Simp Pt/Fam, Lab and Tammi ging orders, Results/Orders obtained and Staff clarify orders Special Needs: Heart tones Established Patient Charge Established Patient Point Assignment: 135 Established Patient Point Charge: EP Level 4 (120-155)
== END 2024-10-14 12:11 | disposition home or self-care (01) ==
LOC: HODSOBC 10:49
PROVIDERS: Supervising Provider Obstetrics & Gynecology; Visit Provider Obstetrics & Gynecology
DX: O09.293 Supervision of pregnancy with other poor reproductive or obstetric history, third trimester (principal); Z3A.37 37 weeks gestation of pregnancy; Z87.59 Personal history of other complications of pregnancy, childbirth and the puerperium
CPT/HCPCS: 99214; G0463

== ENCOUNTER 2024-10-14 17:32 | Observation (INO) | payer MEDICAID, SELFPAY ==
[2024-10-14] VITALS (15 sets, daily range): BP systolic 115–124; BP diastolic 71–82; PULSE 90–124; RESP 17–98; TEMP 36.8; O2SAT 96–99; BMI 32.5
[2024-10-14 18:10] LABS: ROM Kit Lot # 58102387; ROM Swab Mixed By: HL; Rupture of Fetal Membranes Negative (Negative); Swb Mxed in Solvent 1 min? Yes
== END 2024-10-14 21:52 | disposition home or self-care (01) ==
PROVIDERS: Admitting Provider Obstetrics & Gynecology; PCP Obstetrics & Gynecology; Visit Provider Obstetrics & Gynecology
DX: Z34.83 Encounter for supervision of other normal pregnancy, third trimester (principal); Z3A.38 38 weeks gestation of pregnancy
CPT/HCPCS: 59025; 59899; 84112

== ENCOUNTER 2024-10-21 06:20 | Inpatient (IN) | payer MEDICAID, SELFPAY ==
[2024-10-21] VITALS (61 sets, daily range): BP systolic 124–188; BP diastolic 69–105; PULSE 76–120; RESP 16–17; TEMP 36.4–37; O2SAT 92–100; BMI 32.9
--- NOTE | 2024-10-21 07:03 | XR_ITS ---
Examination: age Limited TECHNIQUE: Limited transabdominal sonographic images pelvis Date and time: October 21, 2024 0749 hours INDICATIONS: Labor evaluation today, preinduction FINDINGS: Viable intrauterine gestation cephalic presentation. Estimated weight 2921.4 g Cardiac motion 138 BPM IMPRESSION: Estimated weight 2921 g Estimated gestational age 36 weeks 4 days
[2024-10-21 10:15] LABS: Basophils # (Auto) 0.0 Thou/mm3 (0.0-0.2); Basophils % (Auto) 0 % (0-2.5); Eosinophils # (Auto) 0.1 Thou/mm3 (0.0-0.5); Eosinophils % (Auto) 1 % (0-10); Hematocrit 39.1 % (36.0-46.0); Hemoglobin 12.9 g/dL (12.0-16.0); Immature Granulocytes Auto 0.08 Thou/mm3 (0.00-0.00); Lymphocytes # (Auto) 2.1 Thou/mm3 (1.0-4.8); Lymphocytes % (Auto) 25 % (10-50); Mean Corpuscular HGB Conc 33.0 g/dl (31.0-37.0); Mean Corpuscular Hemoglobin 29.3 pg (25.0-35.0); Mean Corpuscular Volume 89 fL (80-100); Monocytes # (Auto) 0.8 Thou/mm3 (0.0-0.8); Monocytes % (Auto) 10 % (0-12); Neutrophils # (Auto) 5.3 Thou/mm3 (1.8-7.7); Neutrophils % (Auto) 63 % (37-80); Nucleated Red Blood Cell # 0.00 Thou/mm3 (0.00-0.00); Nucleated Red Blood Cell % 0 /100 WBC (0); Platelet Count 233 Thou/mm3 (140-440); RDW Standard Deviation 47.5 fL (36.4-46.3); Red Blood Count 4.40 Miln/mm3 (4.00-5.20); White Blood Count 8.4 Thou/mm3 (3.6-11.0)
[2024-10-21 10:46] LABS: Syphilis Nonreactive (Nonreactive)
--- NOTE | 2024-10-21 12:35 | ESHP_ITS ---
Documentation for date of: 10/21/24 OB Labor/Induct. HPI History of Present Illness Chief complaint: scheduled IOL : 3 Para: 2 Term pregnancies: 2 pregnancies: 0 Living children: 2 History of sections: No History of : No Date of last menstrual period: 01/16/24 BEA: 10/24/24 Gestational Age (weeks): 39 Gestational Age (days): 4 Gestational age based on last menstrual period: 39 History of present illness: Patient presents for scheduled induction of labor. Indication: A1GDM, hx of shoulder dystocia in 1st delivery. No regular/painful ctx. No LOF. No vaginal bleeding. Normal movement. History of Present Dating criteria: LMP confirmed by 1st trimester US Adequate Care: Yes Ultrasounds: other (On admission: 2924g, 8.4%ile ) Narrative: : 2020 male 40wk, shoulder dystocia, 3628g G2: 2022 female 39wk iol 3628g G3: current, complicated by A1GDM and hx of prior shoulder dystocia. Current BMI 32.9. Labs Maternal Blood Type: A Pos Labs: Negative: Group Beta Strep Narrative: Rubella immune/ RPR nonreactive/ hepatitis B surface antigen negative /HIV negative/ hepatitis C negative/ GC negative/ Chlamydia negative/urine culture negative /hemoglobin 13/ NIPT 46XX TB test negative /cystic fibrosis test negative Ultrasound at [facility] on chart 04/09/24:11 weeks 2 days IUP corresponding to EDC 10/28/2024. 1 hour glucose elevated 160/3-hour glucose done late revealing elevated 1 hour at 203 and elevated 3-hour at 144 Review of Systems Review of Systems Narrative Review of Systems: Review of Systems Systems Reviewed: All systems reviewed, normal except as documented Constitutional Constitutional: Denies body ache(s), Denies chills, Denies fever(s) and Denies headache(s) ENT Ears, Nose, Mouth, and Throat: Denies headache(s) and Denies vertigo Cardiovascular Cardiovascular: Denies chest pain, Denies palpitations, Denies dyspnea and Denies syncope Respiratory Respiratory: Denies cough, Denies dyspnea Gastrointestinal Gastrointestinal: Denies nausea and Denies vomiting Neurologic Neurologic: Denies convulsions, Denies headache(s), Denies other visual disturbances, Denies syncope and Denies vertigo Past Medical History Family History OTHER FAMILY HX: non-contributory Surgical History SURGICAL: Negative Section Social History SOCIAL: . no tobacco/ETOH/illicit drug use Past Medical History Comments PMH COMMENT: Current BMI 32.9 Meds Home Medications and Allergies Home Medications ?Medication ?Instructions ?Recorded ?Confirmed ?Type vits no.130-ferrous fum 1 tab PO DAILY 10/21/24 History 27 mg iron-folic acid 800 mcg tablet ( Vitamin) Allergies Allergy/AdvReac Type Severity Reaction Status Date / Time No Known Allergies Allergy Verified 10/21/24 07:04 OB Exam Physical Exam Vital signs: Temp Pulse Resp BP 97.6 F 83 17 125/79 10/21/24 07:02 10/21/24 07:03 10/21/24 07:02 10/21/24 07:03 Narrative: General: well developed, well nourished, no acute distress, conversant Cardiac: normal heart rate Lungs: breathing without distress Abdomen: soft, gravid, non-tender, no rebound or guarding Extremities: trace edema BLE Detailed Labor and Delivery Exam Dilation (cm): 3 Effacement (%): 40 station: -4 Consistency: medium Presentation: Vertex Membranes: intact monitor accelerations: 15x15 monitor decelerations: None CHCF variability: Moderate (11-25) Contraction frequency (min): q5min OB Results Labs 10/21/24 06:29 Labs: Short CBC 10/21/24 Range/Units 06:29 WBC 8.4 (3.6-11.0) Thou/mm3 Hgb 12.9 (12.0-16.0) g/dL Hct 39.1 (36.0-46.0) % Plt Count 233 (140-440) Thou/mm3 OB Assessment & Plan Assessment and Plan (1) Encounter for induction of labor: Status: Acute Assessment and plan: Patient is a yo G P with SIUP at wk presenting for IOL for: A1GDM with hx of shoulder dystocia with 1st delivery (no shoulder dystocia with 2nd delivery). SCE: 40/-4. Vitals wnl, benign exam. Reassuring assessment overall. ultrasound shows 8th%ile. PMhx/PNC significant for: -A1GDM -hx of prior shoulder dystocia -Current BMI 32.9. -Transfer of care to Dr. Enrique at 12wk Plan: -Admit to L&D -Establish IV, routine labs -CEFM -Regular diet [id number], then clear liquid diet in labor -Paper Products Printer/consent re: iol and . Counseled regarding possibility of another shoulder dystocia and the possibility of consequences such as injury to clavicle, nerves, possible CP or even . Patient declines PLTCS and wishes to proceed with IOL. -GBS status: negative -Will initiate IOL with: cytotec 25mcg PV Q4hr -Fingerstick glucose checks q4hr then q2hr in labor -Anticipate -Safe to proceed Nia Adames MD (2) Gestational diabetes: Status: Acute (3) History of shoulder dystocia in prior : Status: Acute (2) Gestational diabetes Qualifiers: Gestational diabetes mellitus control: diet-controlled Trimester: third trimester Qualified Code(s): O24.410 - Gestational diabetes mellitus in , diet controlled
[2024-10-21] MEDS: RINGERS LACTATED 1000 ML 1,000 ML 125 ML IV ×2 (15:00→18:50)
--- NOTE | 2024-10-21 18:32 | PD.LDPN ---
Documentation for date of: 10/21/24 OB Labor Progress Note Pelvic Exam Dilation (cm): 4 Effacement (%): 50 station: -2 Amniotic membrane status: Intact Contractions Monitor mode: External Contraction frequency: 2-3 Contraction intensity: Mild Status status: Category l Assessment and Plan Comments: Intrapartum Note Patient doing well. Now s/p 2 doses of PV cytotec. Vitals wnl, afebrile Cat I FHRT SCE: /-2. Discussed with patient option of AROM and she desired to proceed. Clear fluid. Well tolerated. Will likely want epidural soon Plan expectant management for first 2 hours. If inadequate change during that time, will initiate IV pitocin CEFM Continue to closely observe Safe to proceed Nia Adamse MD
[2024-10-21] MEDS: MINERAL OIL 30 ML UDC TOP (20:42)
[2024-10-21] MEDS: OXYTOCIN in NS 20 units 20 UNIT/1,000 ML BAG 125 UNIT IV (20:44)
--- NOTE | 2024-10-21 20:57 | OBDSUM_ITS ---
Data ([place]) Data Hx Section: No : 3 Term: 2 : 0 Livin Delivery Data ([place]) Labor Data Initiation of labor: Induction Induction/Augmentation Agent: Cytotec-PO and Artificial ROM ROM date: 10/21/24 ROM time: 18:03 Amniotic membrane rupture type: Artificial Amniotic fluid description: Clear Delivery Data Onset of labor date: 10/21/24 Onset of labor time: 18:00 Complete dilation date: 10/21/24 Complete dilation time: 20:06 delivery date: 10/21/24 [place] delivery time: 20:27 Placenta delivery date: 10/21/24 Placenta delivery time: 20:31 Stage 1 total time: Labor - Stage 1 Duration 2 hours and 6 minutes Delivered by: Nia Adames Delivery nurse: roc Hotel Operation Manager at delivery: No Support person(s) at delivery: FOB at bedside Delivery Method Delivery method: Normal Vaginal Delivery Presentation: Vertex Anesthesia Type Anesthesia Type: Epidural Placenta Placenta delivery description: Spontaneous Cord blood sent to lab: Yes cord blood collection: Cord Blood Type Episiotomy Episiotomy description: None EBL Estimated blood loss (ml): 250 Umbilical Cord cord description: 3 Vessels, Nuchal Cord and Reduced Additional Procedures [place] is a 24yo [id number] s/p uncomplicated at 39&4wk after undergoing IOL for A1GDM, delivering at 2026 on 10/21/2024. On presentation, SCE was 3/40/-3. She progressed with PV cytotec and SROM to C/C/0 at which point she began pushing. She had received an epidural. With good maternal pushing efforts, infant's head delivered OA and restituted ELSIE. One tight nuchal cord reduced. Right anterior shoulder delivered easily followed by posterior shoulder and corpus. Infant had spontaneous cry and was vigorous. Apgars 9/9. placed on maternal abdomen where nose/mouth were suctioned and infant dried/stimulated. After approximately 1 minute, cord was clamped x2 and cut by FOB. Cord blood collected for typing. With fundal massage and cord traction, placenta delivered spontaneously and intact with 3 vessel centrally inserted cord. Bimanual massage performed and IV pitocin given per protocol with fundus then firm at u-2cm and hemostasis noted. Inspection of perineum and vagina revealed no lacerations. Cytotec 800mcg SC placed for continued ppx against bleeding. All counts correct x2. Mom and were doing well when I left the room. Nia Adames MD Complications Complications: none [place] Data ([place]) Data order: 1 's gender: Female weight (gms): 3430 g Weight (pounds): 7 lbs and 9.0 ozs 1 minute: 9 5 minutes: 9
[2024-10-21] MEDS: BENZO/LANO/ALOE (Dermoplast) 60 GM CAN 1 SPRAY TOP (22:09)
[2024-10-22 01:13] VITALS: BP 131/85; PULSE 78; RESP 20; TEMP 37.1; O2SAT 94
[2024-10-22] MEDS: DOCUSATE SOD 100 MG CAPSULE PO ×2 (01:29→08:27)
[2024-10-22 03:50] VITALS: BP 112/70; PULSE 60; RESP 20; TEMP 36.8; O2SAT 95
[2024-10-22 06:35] LABS: Basophils # (Auto) 0.0 Thou/mm3 (0.0-0.2); Basophils % (Auto) 0 % (0-2.5); Eosinophils # (Auto) 0.0 Thou/mm3 (0.0-0.5); Eosinophils % (Auto) 0 % (0-10); Hematocrit 37.5 % (36.0-46.0); Hemoglobin 12.5 g/dL (12.0-16.0); Immature Granulocytes Auto 0.08 Thou/mm3 (0.00-0.00); Lymphocytes # (Auto) 2.1 Thou/mm3 (1.0-4.8); Lymphocytes % (Auto) 14 % (10-50); Mean Corpuscular HGB Conc 33.3 g/dl (31.0-37.0); Mean Corpuscular Hemoglobin 28.9 pg (25.0-35.0); Mean Corpuscular Volume 87 fL (80-100); Monocytes # (Auto) 1.2 Thou/mm3 (0.0-0.8); Monocytes % (Auto) 8 % (0-12); Neutrophils # (Auto) 12.0 Thou/mm3 (1.8-7.7); Neutrophils % (Auto) 78 % (37-80); Nucleated Red Blood Cell # 0.00 Thou/mm3 (0.00-0.00); Nucleated Red Blood Cell % 0 /100 WBC (0); Platelet Count 209 Thou/mm3 (140-440); RDW Standard Deviation 45.8 fL (36.4-46.3); Red Blood Count 4.33 Miln/mm3 (4.00-5.20); White Blood Count 15.3 Thou/mm3 (3.6-11.0)
[2024-10-22 08:20] VITALS: BP 124/84; PULSE 79; RESP 18; TEMP 36.8; O2SAT 97
[2024-10-22] MEDS: PRENATAL VITAMIN/FE FUM/FA TABLET 1 TAB PO (08:27)
[2024-10-22] MEDS: IBUPROFEN TAB 400 MG TABLET 800 MG PO (08:27)
[2024-10-22 11:10] VITALS: BP 114/73; PULSE 62; RESP 17; TEMP 36.8; O2SAT 97
--- NOTE | 2024-10-22 12:04 | PD.LDDS ---
DS: Providers Provider Date of admission: 10/21/24 06:20 Primary care physician: Physician No Primary/Family Admitting Provider: Nia Adames MD Attending Provider on Admission: Nia Adames MD Consults: 10/21/24 20:36 Referral Routine Comment: Attending Provider on DC: Nia Adames MD Discharging Provider: Nia Adames MD DS: Diagnosis Discharge Diagnosis (1) care and examination: Status: Acute (2) Encounter for induction of labor: Status: Acute (3) Gestational diabetes: Status: Acute (4) History of shoulder dystocia in prior : Status: Acute Problem List Completed Was Problem List Reviewed/Reconciled?: Yes Summary/Hosp Course Brief History: Patient presents for scheduled induction of labor. Indication: A1GDM, hx of shoulder dystocia in 1st delivery. No regular/painful ctx. No LOF. No vaginal bleeding. Normal movement. ---- [place] is a 24yo [id number] s/p uncomplicated at 39&4wk after undergoing IOL for A1GDM, delivering at 2026 on 10/21/2024. She has had an uncomplicated course, meeting all milestones and feels ready for discharge home. She is ambulating without lightheadedness, tolerating regular diet no n/v, spontaneously voiding without issue. She has no chest pain or shortness of breath. No fevers or chills. Minimal, appropriate discomfort. Vitals normal, benign exam. Hemodynamically stable with no evidence of infection. PP Hgb 12.5. Peripartum Data Delivery Method: Normal Vaginal Delivery Episiotomy Description: None Status at Discharge Functional status at discharge: independent ambulation Overall status at discharge: patient is back to baseline Time Spent with Patient Time attestation: Total time spent providing and/or coordinating discharge services: Exam Vital Signs Temp Pulse Resp BP Pulse Ox O2 Del Method 98.3 F 79 18 124/84 97 Room Air 10/22/24 08:20 10/22/24 08:20 10/22/24 08:20 10/22/24 08:20 10/22/24 08:20 10/22/24 08:20 Narrative Exam General: well developed, well nourished, no acute distress, conversant Cardiac: normal heart rate Lungs: breathing without distress Abdomen: soft, post-gravid, non-tender, no rebound or guarding, Fundus firm at u-3cm. Extremities: no pain with palpation of calves, trace edema of BLE Discharge Plan Plan Patient Disposition: HOME (Self Care) Patient condition on transfer: Stable Prescriptions/Referrals Prescriptions/Med Rec: New docusate sodium 100 mg Capsule 100 mg PO BID 10 Days Qty: 20 0RF ibuprofen 800 mg tablet 800 mg PO Q8H PRN (Reason: See Comments) 10 Days Qty: 20 0RF No Action Vitamin 27 mg iron- 800 mcg tablet 1 tab PO DAILY Patient Comments: take 1 tablet by mouth once daily with food Referrals: No Primary/Family,Physician [Primary Care Provider] Patient/Caregiver Discharge Instructions Discharge Activity: activity as tolerated and other Other Discharge Activity Instructions:: vaginal rest and no heavy lifting more than 10 pounds for 6 weeks Other Discharge Diet Instructions: regular Education Materials: After a Vaginal Print Language: Bulgarian Activity Restrictions/Additional Instructions: follow up with Dr. Enrique in 4 to 6 weeks, call clinic to schedule appointment Stand Alone Forms: Johanna Award Info., Patient Portal Info Letter Discharge Order Discharge Orders: Discharge (Routine); Ordered 10/22/24 Ordered By: Nia Adames Planned Discharge Date 10/22/24 (3) Gestational diabetes Qualifiers: Gestational diabetes mellitus control: diet-controlled Trimester: third trimester Qualified Code(s): O24.410 - Gestational diabetes mellitus in , diet controlled
[2024-10-22 15:30] VITALS: BP 121/83; PULSE 75; RESP 18; TEMP 36.7; O2SAT 98
--- NOTE | 2024-10-22 16:01 | PC.NURSE ---
Patient cleared by Lance in school social worker
--- NOTE | 2024-10-22 16:19 | PC.SS ---
MATHEMATICAL ENGINEERING TECHNICIAN conducted bedside contact with the patient to address nursing referral indicating patient possessed history of post- depression.? MATHEMATICAL ENGINEERING TECHNICIAN introduced self and role.? At bedside with patient was FOB, Shailesh Abdi.? Patient gave permission for FOB to be present during discussion.? Patient confirmed past history of post- depression.? Patient denies current possession of post depression.? Depression screening score 4.? Patient denies history of mental health.? Patient denies history of self-harm behaviors or psychiatric placement.? Patient?s FOB voiced no concerns over patient?s current emotional status.? Infant, Joanna; is the patient?s 3rd child.? delivered naturally.? Patient interacting appropriate with infant.? OB services provided by Dr. Floyd.? Patient reports compliance with OB appointments.? Patient plans on combo feeding the infant.? Patient is aligned with WIC and SNAP.? Patient not receiving TANF.? Patient denies history of CWS intervention.? Patient denies history of alcohol/drug use.? Patient denies episodes of domestic violence.? Patient has access to appropriate supplies and equipment.? FOB will provide transportation upon discharge.? Patient describes possessing support system consisting of FOB and extended family.? MATHEMATICAL ENGINEERING TECHNICIAN provided community resources to include [employer] and [employer].? No further intervention required at this time, social sciences lecturer will be available to address any further concerns.? MATHEMATICAL ENGINEERING TECHNICIAN updated bedside nurse.?
[2024-10-22 19:30] VITALS: BP 126/88; PULSE 66; RESP 16; TEMP 36.6; O2SAT 97
== END 2024-10-22 22:00 | disposition home or self-care (01) | DRG 560 ==
LOC: S4SX 20:43 → S4NX 23:07
PROVIDERS: Admitting Provider Obstetrics & Gynecology; Visit Provider Obstetrics & Gynecology
DX: O24.420 Gestational diabetes mellitus in childbirth, diet controlled (principal); O69.1XX0 Labor and delivery complicated by cord around neck, with compression, not applicable or unspecified; Z3A.39 39 weeks gestation of pregnancy; Z37.0 Single live birth; Z87.59 Personal history of other complications of pregnancy, childbirth and the puerperium
CPT/HCPCS: 36415; 76815; 85025; 86780; 86850; 86900; 86901; J2590; J2795; J3010; J7120; S0191; A9270

== ENCOUNTER 2024-12-02 09:16 | Outpatient (AMB) | payer MEDICAID, SELFPAY ==
[2024-12-02 09:30] VITALS: BP 107/76; PULSE 75; RESP 16; TEMP 36.6; O2SAT 97; BMI 30.3
--- NOTE | 2024-12-02 09:30 | AMBOBPPN_ITS ---
Vital Signs 12/02/24 09:30 Height 1.57 m Height Method Stated Weight 75.296 kg Weight Measurement Method Standing Scale BMI 30.3 BP 107/76 Blood Pressure Source Automatic Cuff Blood Pressure Location Left Upper Arm Position Sitting Respiration 16 Pulse 75 Pulse Source Monitor Temp 97.8 F Temp Source Oral Pulse Oximetry (%) 97 Oxygen Delivery Method Room Air Allergies/Home Meds Allergies & Medications Allergies No Known Allergies Allergy (Verified 12/02/24 09:31) Medication Reconciliation vits no.130-ferrous fum 27 mg iron-folic acid 800 mcg tablet ( Vitamin) 1 tab PO DAILY 10/21/24 [History Confirmed 12/02/24] Intake Visit Data Collection New Patient or Established: Established Patient (seen at [facility] within 3 years) Reason for Visit:: Seen by Clinical Staff ONLY (RN/MA): No Lineman Required: No Do You Feel Safe at Home: Yes Authorities Contacted: N/A PCP or OBGYN visit in last 3 months: Yes Hx Now: No Are you currently on any form of Control: No Pain Present Currently: No Pain Scale Used: Paulino-Zamora/Numerical Pain scale:: 0 Smoking Status Smoking Status: Never smoker [employer]: Past Medical History Past Medical History: Yes Hx Neurological Disorders, No Hx Hypothyroidism, No Hx Hyperthyroidism, No Hx Breast Cancer, No Hx Cardiac Disorders, No Hx Hypertension, No Hx Blood Disorders, No Hx Anemia, No Hx Gastrointestinal Disorders, No Hx Renal Disease, No Hx Deep Vein Thrombosis, No Hx Diabetes Mellitus Type 1, No Hx Diabetes Mellitus Type 2 and No Hx Polycystic Ovarian Syndrome Questionnaires Covid-19 Vaccine Questionnaire Has patient been vacinated for Covid-19 Have you been vacinated for Covid-19: Yes Social History Living Situation History Lives With: Family Housing: House Housing Other:: Patient stays at home 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 Tobacco History Smoking Status: Never smoker Second Hand Smoke Exposure: No Alcohol History Alcohol Intake: Former Alcohol Intake Frequency: holidays/special occasions only Domestic Abuse History Do You Feel Safe at Home: Yes EPDS - PP Depression Screening [place] Pospartum Depression Screen I have been able to laugh and see the funny side of things: (0) As much as I always could I have looked forward with enjoyment to things: (0) As much as I ever did I have blamed myself unnecessarily when things went wrong: (0) No, never I have been anxious or worried for no good reason: (0) No, not at all I have felt scared or panicky for no very good reason: (0) No, not at all Things have been getting on top of me: (0) No, I have been coping as well as ever I have been so unhappy that I have had difficulty sleeping: (0) No, not at all I have felt sad or miserable: (0) No, not at all I have been so unhappy that I have been crying: (0) No, never The thought of harming myself has occurred to me: (0) Never Total Score: EPDS Score: Referral is indicated for score of 9 or more, suicidal, or if provider believes patient is depressed regardless of score.: 0 EPDS completed yes HPI Interval History: Bruno Mejia is a 24-year-old 3, para 3 woman presenting for routine visit following normal spontaneous vaginal delivery on October 21, 2024. She had been receiving care from Dr. Enrique in this office and delivered without sustaining any lacerations during delivery. She is currently and reports that both she and the baby are doing well. The patient states she is feeling good and notes this is her third baby, so she knows what to expect during the process. She denies any current issues or concerns at this approximately 6-week visit. She is a 24-year-old female with an obstetric history of . Her most recent delivery was October 21, 2024. The patient is and has 3 children. ROS: Negative except as stated above, limited to [employer] and pertinent complaints. Exam General General Appearance: alert, in no apparent distress and healthy appearing Head Head exam: atraumatic Neck Neck exam: Present normal inspection and trachea midline Chest Chest inspection: Present normal inspection and symmetric chest wall rise External exam: Present normal external exam; Absent tenderness Neuro Neurological exam: Present oriented X3 Psych Psychiatric exam: Present normal affect and normal mood Office Procedures OBC Clinic LOC & Office Proc's Nursing/Assessment Patient Status: Established Patient OB Clinic Nursing Assessment: Medication Reconciliation, Update PMH in EMR and Vital Signs OB Clinic Coordination of Care: Complex Care and Chronic Disease 1-5, Consent,records obtained, informed consent, Education Simp Pt/Fam, Lab and Imaging orders, Results/Orders obtained and Staff clarify orders Established Patient Charge Established Patient Point Assignment: 105 Established Patient Point Charge: EP Level 3 (80-115) Assessment & Plan Diagnosis / Problem List (1) care and examination: Status: Acute (2) Gestational diabetes: Status: Acute Qualifiers: Gestational diabetes mellitus control: diet-controlled Trimester: third trimester Qualified Code(s): O24.410 - Gestational diabetes mellitus in , diet controlled Plan Contraceptive Counseling: - Patient is 6 weeks following uncomplicated vaginal delivery. - Currently and declined contraception at this time. - Desires to research options further before making decision. Plan: - Discuss contraceptive options compatible with . - Avoid estrogen-containing methods while as they can affect milk production. - Consider non-estrogen contraceptives which are safe during . - Advised waiting approximately 12 weeks before starting estrogen- containing control. - Reassess contraceptive needs when patient ready to discuss choice.
== END 2024-12-02 09:47 | disposition home or self-care (01) ==
LOC: HODSOBC 09:16
PROVIDERS: Supervising Provider Obstetrics & Gynecology; Visit Provider Obstetrics & Gynecology
DX: Z39.2 Encounter for routine postpartum follow-up (principal); O24.439 Gestational diabetes mellitus in the puerperium, unspecified control; Z39.1 Encounter for care and examination of lactating mother
CPT/HCPCS: 99213; G0463